=== PATIENT | female | born 1965 | race Caucasian/White ===

== ENCOUNTER 2016-08-10 22:58 | Emergency (ER) | payer OTHER ==
[~2016-08-10] VITALS: Ht 167.6 cm; Wt 140.0 kg
[2016-08-10 23:11] VITALS: BP 96/66; RESP 16
--- NOTE | 2016-08-10 23:44 | ED.REPORT ---
HPI-Sore Throat ONLY HPI/PE done Aug 10, 2016 ED Provider: Caden Charles DO A 50 year old female with a history of seasonal allergies presents to the ED complaining of possible strep throat. The pt has been experiencing a sore throat since yesterday and states that her grandson was recently diagnosed with strep. 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 Nursing Notes Stated Complaint: POSS STREP THROAT Chief Complaint: ENT & Mouth Nursing Notes Reviewed: Yes Allergies: Coded Allergies: Penicillins (Verified Allergy, Intermediate, sick, 08/10/16) Sulfa (Sulfonamide Antibiotics) (Verified Allergy, Intermediate, rash, 08/10) General Time Seen by MD: 23:43 Chief Complaint Sore throat Hx Obtained From: Patient Arrived By: Walk-in Onset Occurred: 1 day ago Symptom Duration: Since onset Recent Healthcare: No recent doctor visit, No recent hospitalization Similar Sx Previous: No Past Medical History Past Medical History seasonal allergies Past Surgical History Reports: Tubal ligation Smoking History Former Smoker (quit 2005) Ambulatory Status Independent Review of Systems Ears / Nose / Throat: Reports: Sore throat Respiratory: Denies: Non-productive cough, Shortness of breath GI: Denies: Abdominal pain Skin: Denies Rash Complete sys rev & neg: except as marked. Physical Exam Initial Vital Signs Vital Signs (First) Date Time Temp Pulse Resp B/P Pulse Ox O2 Delivery O2 Flow Rate FiO2 08/10/16 23:11 36.7 65 16 96/66 Initial VS: Reviewed General/Constitutional: Awake, Alert ENT: Atraumatic, Airway patent, Mucous membranes moist, Pharynx NL Neck: Atraumatic, Supple, Full range of motion no significant lymphadenopathy Head / Eyes: Atraumatic, Normocephalic, PERRL, EOMI Respiratory / Chest: Atraumatic, Breath sounds NL, Breath sounds = bilat, No respiratory distress Cardiovascular: Heart rate NL, Regular rhythm, Heart sounds NL Abdomen: Atraumatic, Soft, Non-tender Skin: Atraumatic, Color NL, No rash, Warm, Dry Neurologic: Oriented X3, Speech NL, No motor deficits, No sensory deficits Back: Atraumatic, Full range of motion Upper Extremity / MS: Atraumatic, Full range of motion Lower Extremity / Pelvis / MS: Atraumatic, Full range of motion Psychiatric: Affect NL, Mood NL Interpretation & Diagnostics Lab Results Interpretation Lab Results Interpretation: rapid strep negative Re-Eval/Medical Decision Med Decision/Clinical Course No exudates or lymphadenopathy. Rapid strep is negative. Throat culture pending. Recommend Tylenol Motrin and follow up with a throat culture. Re-Evaluation/Progress : Time of Eval: 00:45 Patient Status: Condition improved Re-Evaluation/Progress Note: Pt rechecked, who is comfortable. She is informed of her diagnosis and plan for discharge is discussed. The pt understands and agrees with the plan. All questions are addressed at this time. Counseled Regarding: Diagnosis, Lab results, Need for follow-up, When/why to return to ED Discharge & Departure Primary Impression: Pharyngitis Pharyngitis/tonsillitis etiology: unspecified etiology Qualified Code: J02.9 - Acute pharyngitis, unspecified Disposition: Home Discharge Condition All VS Reviewed: Yes Condition: Stable Patient Instructions: Pharyngitis (ED) Additional Instructions: The strep screen was negative. We are performing a throat culture and that should be available in 3-4 days. I would like him to call back for the results of that. If the strep culture grows out group A streptococcal bacteria then you will need to be on antibiotics. Tylenol or Motrin as directed for pain. Follow-up with your primary care physician next week. Return for any problems or any new or worrisome symptoms. Referrals: Pradip Carcamo PA-C (PCP) Hilary Shelby (Family) Tom Attestation Portions of this note were transcribed by Ashwin Blackburn. I, Dr. Charles personally performed the history, physical exam and medical decision-making; I reviewed and confirmed the accuracy of the information in the transcribed note. Signed by: Tom Varma, 08/11/16 and 0140. copies to: Hilary Shelby; Pradip Carcamo PA-C, Todd P DO Aug 10, 2016 23:44 ASHWIN BLACKBURN Aug 11, 2016 00:25
== END 2016-08-11 01:08 | disposition home or self-care (01) ==
LOC: SED 22:58
DX: J02.9 Acute pharyngitis, unspecified (principal); Z87.891 Personal history of nicotine dependence; Z88.0 Allergy status to penicillin; Z88.2 Allergy status to sulfonamides